=== PATIENT | male | born 1995 | race Caucasian/White ===

== ENCOUNTER 2016-09-29 12:29 | Emergency (ER) | payer OTHER ==
[2016-09-29 12:37] VITALS: BP 131/84
--- NOTE | 2016-09-29 13:12 | UC ---
Ivanna Murphy Salem, scribed for Joyce Lara MD on 09/29/16 at 1248 . Lower Extremity/Ankle HPI - HPI Summary HPI Summary: Patient is a 21 y/o M who presents to the with tingling / sensory changes in bilateral posterior lower extremities since 4 days ago. He states that tingling began in the soles of his feet on Sunday. and has been spreading upwards into his perineum. Pt states initial felt sensation like "deep asleep" but has progressed since and now with a constant dull pain in same lower extremity distribution and intermittent sharp stabbing pain (keeping him up at night). PT denies any weakness in LE - no difficulty with ambulation or balance. Pt states at the same time he developed pressure in his rectum and sense of consitpation. PT states was unable to go to the bathroom x 2 days - pt then took stool softners had multiple BM. PT states again today feels constipated. No h/o similar complaints. No incontinence. Pt denies any new shoes, new sports, anything labor intensive, anything inserted into rectum, or any trauma. Denies masses in rectum region. Pt also denies incontinence, muscle weakness, back pain, blood in stool, or pain and sensory changes in . He also denies fever, chills, or rashes. He states that he was in [place] from August 26 to September 08, 2016, but had no sx until 4 days ago. He denies being around anyone who has been sick. no recent vaccination, new medications. no sick contacts. no illness while abroad. Pt is on Truvada for HIV prophylaxis since April. No Fhx of Guillain-Chew or other neurologic processes. . Pt is unable to see PCP until November 05. Patients medication reviewed this visit. - History of Current Complaint Stated Complaint: TINGLING/PAIN, HANDS/FEET Time Seen by Provider: 09/29/16 12:37 Hx Obtained From: Patient Onset/Duration: Gradual Onset, Lasting Days, Still Present Severity Initially: Moderate Severity Currently: Moderate Pain Intensity: 4 Pain Scale Used: 0-10 Numeric Aggravating Factor(s): Nothing Alleviating Factor(s): Nothing Able to Bear Weight: Yes - Allergies/Home Medications Allergies/Adverse Reactions: Allergies Allergy/AdvReac Type Severity Reaction Status Date / Time Shrimp Flavor Allergy Rash Verified 09/29/16 12:32 Home Medications: Home Medications Tenofovir/Emtricitabine(*) [Truvada*] 200 mg PO DAILY 09/29/16 [History Confirmed 09/29/16] PMH/Surg Hx/FS Hx/Imm Hx Previously Healthy: Yes - Surgical History Surgical History: None - Family History Known Family History: Positive: Other - No fhx of back or spine problems. No fhx of guillain-chew. - Social History Occupation: Student - Graduate school. Alcohol Use: Weekly Substance Use Type: None Smoking Status (MU): Never Smoked Tobacco Review of Systems Constitutional: Negative Skin: Negative Eyes: Negative ENT: Negative Respiratory: Negative Cardiovascular: Negative Gastrointestinal: Diarrhea Genitourinary: Other - Constipation and pain in rectum. No masses. No incontinence, back pain, blood in stool, or pain or sensory changes in . Motor: Negative Neurovascular: Negative Musculoskeletal: Negative Neurological: Numbness, Other - Tingling and pain of bilateral lower extremities. All Other Systems Reviewed And Are Negative: Yes Physical Exam Triage Information Reviewed: Yes Appearance: Well-Appearing, No Pain Distress, Well-Nourished Vital Signs: Initial Vital Signs Temp 98 F 09/29/16 12:32 Pulse 86 09/29/16 12:32 Resp 16 09/29/16 12:32 BP 131/84 09/29/16 12:32 Pulse Ox 100 09/29/16 12:32 Vital Signs Reviewed: Yes Eye Exam: Normal Eyes: Negative: Discharge ENT: Positive: Hearing grossly normal Dental Exam: Normal Neck exam: Normal Respiratory Exam: Normal Respiratory: Positive: Lungs clear, Normal breath sounds, No respiratory distress Cardiovascular Exam: Normal Cardiovascular: Positive: RRR, No Murmur, Pulses Normal, Other: - 2+ PT b/l Abdominal Exam: Normal Abdomen Description: Positive: Nontender, No Organomegaly, Soft Bowel Sounds: Positive: Present Musculoskeletal: Positive: Strength Intact, ROM Intact, Other: - full AROM hips , knees, ankles b/l Neurological Exam: Normal Neurological: Positive: Alert, Muscle Tone Normal, Other: - 2+ patellar, achilles reflexes b/l symmetric, no clonus b/l equal sensation throughout LE and UE b/l Psychological Exam: Normal Psychological: Positive: Normal Response To Family Skin Exam: Normal Lower Extremity Course/Dx - Course Course Of Treatment: Pt with progressive sensory changes S1, S2 dermatome with concominant changes to bowel habits. PT is on antiviral prophylacitically. Differential wide but includes cord compression, medication reaction, Guillain- Chew. REcommend pt go to ED for lab work and possible imaging. Pt states understanding and agreement with plan. Will discharge - dad to drive. call to [facility] - Dr. Collado given report - Differential Dx/Diagnosis Provider Diagnoses: progressive paresthesia - Physician Notifications Discussed Patient Care With: Bhavin Collado Time Discussed With Above Provider: 13:04 Instructed by Provider To: Transfer - Will accept pt. Discharge - Discharge Plan Condition: Stable Disposition: [facility] Patient Education Materials: Paresthesia (ED) Referrals: Jayson Celeste MD [Primary Care Provider] - Additional Instructions: The doctor that evaluated you today thinks you should have some additoinal testing and evaluation of the sensory changes in you legs - it is recommended you go to the emergency department for additional testing. They are expecting you. You will likely have laboratory (blood work) and perhaps some imaging to determine if there is a concerning cause for your symptoms. The documentation as recorded by the Ivanna darden Salem accurately reflects the service I personally performed and the decisions made by me, Joyce Lara MD.
== END 2016-09-29 13:13 | disposition short-term general hospital (02) ==
LOC: UCEAST 12:29
DX: R20.2 Paresthesia of skin (principal)
CPT/HCPCS: 99212; G0463

== ENCOUNTER 2016-09-29 13:40 | Emergency (ER) | payer OTHER ==
[2016-09-29 14:38] LABS: Urine Bilirubin Negative (Negative); Urine Glucose Negative (Negative); Urine Nitrite Negative (Negative)
[2016-09-29 14:50] LABS: Hematocrit 46 % (42-52); Hemoglobin 15.8 g/dl (14.0-18.0); Mean Corpuscular HGB Conc 34 g/dl (31-36); Mean Corpuscular Hemoglobin 32 pg (27-31); Mean Corpuscular Volume 93 fL (80-94); Mean Platelet Volume 8 um3 (7.4-10.4); Red Blood Count 4.97 10^6/ul (4.0-5.4); Red Cell Distribution Width 13 % (10.5-15); White Blood Count 5.5 10^3/ul (3.5-10.8)
[2016-09-29 15:05] LABS: ALT 36 U/L (7-52); AST 24 U/L (13-39); Albumin 4.6 g/dL (3.2-5.2); Alkaline Phosphatase 82 U/L (34-104); Anion Gap 7 mmol/L (2-11); BUN/Creatinine Ratio 12.4 (8-20); Blood Urea Nitrogen 11 mg/dL (6-24); C Reactive Protein 1.86 mg/L (< 5.00); CO2 Carbon Dioxide 25 mmol/L (22-32); Calcium 9.5 mg/dL (8.6-10.3); Chloride 106 mmol/L (101-111); EGFR African American 137.5 (>60); EGFR Non-African American 106.9 (>60); Globulin 2.7 g/dL (2-4); Glucose 101 mg/dL (70-100); Potassium 4.3 mmol/L (3.5-5.0); Sodium 138 mmol/L (133-145); Total Protein 7.3 g/dL (6.4-8.9)
[2016-09-29 15:07] LABS: Troponin I 0.01 ng/mL (<0.04)
[2016-09-29 15:33] LABS: Alcohol < 10 mg/dL (<10)
[2016-09-29 15:34] VITALS: BP 127/82
[2016-09-29 15:41] LABS: Erythrocyte Sed Rate 5 mm/Hr (0-14)
[2016-09-29 16:02] LABS: TSH (Thyroid Stimulating Horm) 0.87 mcIU/mL (0.34-5.60)
[2016-09-29 16:16] LABS: Vitamin B12 220 pg/mL (180-914)
--- NOTE | 2016-09-29 16:46 | ED ---
Jose Murphy Rebecca, scribed for Shaila Burns MD on 09/29/16 at 1414 . Lower Extremity - HPI Summary HPI Summary: Pt is a 21 y/o M referred from [facility] who presents to ED c/o bilateral paresthesia and pain in the LE. Paresthesia began on Sunday09/25/16 (4 days ago ) in the soles of the feet and has gradually spread from the soles up through the LE and into the inguinal region. Starting yesterday, he began experiencing a constant, bilateral dull aching pain that goes from the feet up to the knees with occasional sharp, shooting sensations. Currently, the pain is mild, ranked 3/10. Sx aggravated by exposure to the cold and alleviated by nothing. Additionally c/o constipation that began 4 days ago, as well as rectal pain. Denies LE weakness, fever, urinary or bowel incontinence and rectal bleeding. Denies any recent sick contact. PMHx Lyme Disease (summer 2012 - was given Abx in [place], [place] after he presented with a rash and "seizure-like" convulsions ). He followed up locally with Dr. Celeste who did not treat with further Abx. Pt is on Truvada as HIV prophylaxis. Was most recently sexually active with rectal intercourse 2 weeks ago which was free of pain and bleeding. He was in [place] from August 26-September 08 and has been well since his return prior to onset of current sx. Also states he had syphilis that was treated with one injection of antibiotics 5 months ago. Confirms his father is in the ED waiting room for support at this time and that his father is aware of his sexual preference and sexual activity. - History of Current Complaint Chief Complaint: EDExtremityLower Stated Complaint: PAIN IN FEET AND LEGS Hx Obtained From: Patient Onset of Pain: Days - Tingling - 4 days ago; Pain - yesterday Onset/Duration: Still Present Severity Initially: Mild Severity Currently: Mild Pain Intensity: 3 Pain Scale Used: 0-10 Numeric Timing: Constant - Dull, aching, Intermittent - Sharp Location: Is Discrete @ - Bilateral LE from the soles of the feet up to the knees Character Of Pain: Sharp - Intermittent, Dull - Constant, Aching - Constant Associated Signs And Symptoms: Positive: Other - Bilateral LE paresthesia, rectal pain, constipation; Denies urinary or bowel incontinence and rectal bleeding. Negative: Fever, Weakness Aggravating Factor(s): Other - Exposure to the cold Alleviating Factor(s): Nothing Able to Bear Weight: Yes - Allergies/Home Medications Allergies/Adverse Reactions: Allergies Allergy/AdvReac Type Severity Reaction Status Date / Time Shrimp Flavor Allergy Rash Verified 09/29/16 12:32 PMH/Surg Hx/FS Hx/Imm Hx Previously Healthy: No - Lyme ds and syphilis Endocrine/Hematology History: Denies: Hx Diabetes, Hx Thyroid Disease Cardiovascular History: Denies: Hx Hypertension Respiratory History: Denies: Hx Asthma Musculoskeletal History: Reports: Other Musculoskeletal History - PMHx Lyme Disease Infectious Disease History: No Infectious Disease History: Reports: Traveled Outside the [place] in Last 30 Days - [place] Denies: Hx Clostridium Difficile, Hx Hepatitis, Hx Human Immunodeficiency Virus (HIV), Hx of Known/Suspected MRSA, Hx Shingles, Hx Tuberculosis, Hx Known/ Suspected VRE, Hx Known/Suspected VRSA, History Other Infectious Disease - Family History Known Family History: Positive: Other - No fhx of back or spine problems. No fhx of Guillain-Chew. Negative: Cardiac Disease - Social History Occupation: Student - [employer] Alcohol Use: Weekly Alcohol Amount: socially Substance Use Type: Reports: None Smoking Status (MU): Never Smoked Tobacco Review of Systems Negative: Fever Cardiovascular: Negative Respiratory: Negative Positive: Other - Constipation Positive: pain - Rectal pain, other - Denies rectal bleeding. Negative: discharge, incontinence Positive: Arthralgia - Bilateral LE pain from the feet up to the knees Neurological: Other - Bilateral LE paresthesia from the feet to the inguinal region All Other Systems Reviewed And Are Negative: Yes Physical Exam Triage Information Reviewed: Yes Vital Signs On Initial Exam: Initial Vitals Temp Pulse Resp BP Pulse Ox 97.8 F 70 17 133/82 100 09/29/16 13:43 09/29/16 13:43 09/29/16 13:43 09/29/16 13:43 09/29/16 13:43 Vital Signs Reviewed: Yes Appearance: Positive: Well-Nourished, Ill-Appearing, Pain Distress Skin: Positive: Skin Color Reflects Adequate Perfusion, Other - Normal Head/Face: Positive: Normal Head/Face Inspection Eyes: Positive: Conjunctiva Clear ENT: Positive: Normal ENT inspection, Hearing grossly normal. Negative: Muffled /hoarse voice Neck: Positive: Supple, Nontender, No Lymphadenopathy Respiratory/Lung Sounds: Positive: Clear to Auscultation, Breath Sounds Present , Other - No respiratory distress Cardiovascular: Positive: RRR, Pulses are Symmetrical in both Upper and Lower Extremities, Other - Brisk capillary refill. Negative: Murmur, Rub Abdomen Description: Positive: Nontender, Soft. Negative: Distended, Guarding Male Genital Exam: Positive: other - Rectal Exam: There was a tender spot, internally, at the 7 o'clock position. No stool in the rectum. No blood present on occult blood testing. Musculoskeletal: Positive: Strength/ROM Intact. Negative: Edema Left, Edema Right Neurological: Positive: Sensory/Motor Intact, Alert, Oriented to Person Place, Time, Normal Gait, Abnormal Reflex @ - bilat ankle reflexes absent; bilat knee jerk 1+ bilat, Speech Normal, Other - Knee jerk reflex 1+, Ankle jerk reflexes 0 bilaterally. Negative: Reflexes Intact, Babinski Left, Babinski Right, Babinski Bilateral - downgoing, normal, Facial Droop, Focal Deficit @, Slurred Speech Psychiatric: Positive: Normal - [place] Coma Scale Coma Scale Total: 15 Diagnostics - Vital Signs Vital Signs Temp Pulse Resp BP Pulse Ox 09/29/16 13:56 75 98 09/29/16 13:55 143/89 09/29/16 13:51 98.1 F 85 16 143/89 96 09/29/16 13:43 97.8 F 70 17 133/82 100 - Laboratory Lab Results: Lab Results 09/29/16 09/29/16 09/29/16 Range/Units 14:25 14:28 14:28 WBC 5.5 (3.5-10.8) 10^3/ul RBC 4.97 (4.0-5.4) 10^6/ul Hgb 15.8 (14.0-18.0) g/dl Hct 46 (42-52) % MCV 93 (80-94) fL MCH 32 H (27-31) pg MCHC 34 (31-36) g/dl RDW 13 (10.5-15) % Plt Count 181 (150-450) 10^3/ul MPV 8 (7.4-10.4) um3 Neut % (Auto) 61.2 (38-83) % Lymph % (Auto) 30.5 (25-47) % [place] % (Auto) 6.6 (1-9) % Eos % (Auto) 1.2 (0-6) % Baso % (Auto) 0.5 (0-2) % Absolute Neuts (auto) 3.4 (1.5-7.7) 10^3/ul Absolute Lymphs (auto) 1.7 (1.0-4.8) 10^3/ul Absolute Monos (auto) 0.4 (0-0.8) 10^3/ul Absolute Eos (auto) 0.1 (0-0.6) 10^3/ul Absolute Basos (auto) 0 (0-0.2) 10^3/ul Absolute Nucleated RBC 0 10^3/ul Nucleated RBC % 0.1 ESR 5 (0-14) mm/Hr INR (Anticoag Therapy) 0.91 (0.89-1.11) APTT 32.2 (26.0-36.3) seconds Sodium (133-145) mmol/L Potassium (3.5-5.0) mmol/L Chloride (101-111) mmol/L Carbon Dioxide (22-32) mmol/L Anion Gap (2-11) mmol/L BUN (6-24) mg/dL Creatinine (0.67-1.17) mg/dL Est GFR ( Amer) (>60) Est GFR (Non-Af Amer) (>60) BUN/Creatinine Ratio (8-20) Glucose (70-100) mg/dL Lactic Acid (0.5-2.0) mmol/L Calcium (8.6-10.3) mg/dL Total Bilirubin (0.2-1.0) mg/dL AST (13-39) U/L ALT (7-52) U/L Alkaline Phosphatase (34-104) U/L Troponin I (<0.04) ng/mL C-Reactive Protein (< 5.00) mg/L Total Protein (6.4-8.9) g/dL Albumin (3.2-5.2) g/dL Globulin (2-4) g/dL Albumin/Globulin Ratio (1-3) Vitamin B12 (180-914) pg/mL TSH (0.34-5.60) mcIU/mL Urine Color Straw Urine Appearance Clear Urine pH 6.0 (5-9) Ur Specific [place] 1.005 L (1.010-1.030) Urine Protein Negative (Negative) Urine Ketones Negative (Negative) Urine Blood Negative (Negative) Urine Nitrate Negative (Negative) Urine Bilirubin Negative (Negative) Urine Urobilinogen Negative (Negative) Ur Leukocyte Esterase Negative (Negative) Urine Glucose Negative (Negative) Serum Alcohol (<10) mg/dL 09/29/16 09/29/16 Range/Units 14:28 14:28 WBC (3.5-10.8) 10^3/ul RBC (4.0-5.4) 10^6/ul Hgb (14.0-18.0) g/dl Hct (42-52) % MCV (80-94) fL MCH (27-31) pg MCHC (31-36) g/dl RDW (10.5-15) % Plt Count (150-450) 10^3/ul MPV (7.4-10.4) um3 Neut % (Auto) (38-83) % Lymph % (Auto) (25-47) % [place] % (Auto) (1-9) % Eos % (Auto) (0-6) % Baso % (Auto) (0-2) % Absolute Neuts (auto) (1.5-7.7) 10^3/ul Absolute Lymphs (auto) (1.0-4.8) 10^3/ul Absolute Monos (auto) (0-0.8) 10^3/ul Absolute Eos (auto) (0-0.6) 10^3/ul Absolute Basos (auto) (0-0.2) 10^3/ul Absolute Nucleated RBC 10^3/ul Nucleated RBC % ESR (0-14) mm/Hr INR (Anticoag Therapy) (0.89-1.11) APTT (26.0-36.3) seconds Sodium 138 (133-145) mmol/L Potassium 4.3 (3.5-5.0) mmol/L Chloride 106 (101-111) mmol/L Carbon Dioxide 25 (22-32) mmol/L Anion Gap 7 (2-11) mmol/L BUN 11 (6-24) mg/dL Creatinine 0.89 (0.67-1.17) mg/dL Est GFR ( Amer) 137.5 (>60) Est GFR (Non-Af Amer) 106.9 (>60) BUN/Creatinine Ratio 12.4 (8-20) Glucose 101 H (70-100) mg/dL Lactic Acid 1.1 (0.5-2.0) mmol/L Calcium 9.5 (8.6-10.3) mg/dL Total Bilirubin 0.90 (0.2-1.0) mg/dL AST 24 (13-39) U/L ALT 36 (7-52) U/L Alkaline Phosphatase 82 (34-104) U/L Troponin I 0.01 (<0.04) ng/mL C-Reactive Protein 1.86 (< 5.00) mg/L Total Protein 7.3 (6.4-8.9) g/dL Albumin 4.6 (3.2-5.2) g/dL Globulin 2.7 (2-4) g/dL Albumin/Globulin Ratio 1.7 (1-3) Vitamin B12 220 (180-914) pg/mL TSH 0.87 (0.34-5.60) mcIU/mL Urine Color Urine Appearance Urine pH (5-9) Ur Specific [place] (1.010-1.030) Urine Protein (Negative) Urine Ketones (Negative) Urine Blood (Negative) Urine Nitrate (Negative) Urine Bilirubin (Negative) Urine Urobilinogen (Negative) Ur Leukocyte Esterase (Negative) Urine Glucose (Negative) Serum Alcohol < 10 (<10) mg/dL Result Diagrams: 09/29/16 14:28 09/29/16 14:28 Lab Statement: Any lab studies that have been ordered have been reviewed, and results considered in the medical decision making process. - EKG 1529 Cardiac Rate: NL - 72 bpm EKG Rhythm: Sinus Rhythm EKG Interpretation: Nl AV/IV CT, no QTC, nl axis, no acute changes Re-Evaluation - Re-Evaluation First Eval Re-Evaluation Time: 14:36 Change: Unchanged Comment: Discussed consultation with Dr. 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 Discussed who has been providing his Truvada and a possible alternative prophylaxis treatment. Updated on how long his blood work results should take to return. Performed rectal exam and further discussed symptoms. Note discussion with Dr. Smith occured before hx of Lyme ds and syphilis were known. Second Eval Re-Evaluation Time: 16:04 Change: Unchanged Comment: Discussed the appointment made with Dr. Cox and the consult with Dr. Denney. Advised the patient not to stop the Truvada yet, until further discussion with Dr. Cox. Told the patient that there are HIV, Syphilis, Thyroid, Vitamin B12 and Lyme labs that were sent. Pt reports that he has previously had Syphilis about 5 months ago which was treated. Told the patient that ultimately the lesion found on the rectal exam needs to be evaluated and that if he has issues scheduling an appointment with Dr. Denney to call the [facility] office, per Dr. Denney. Lower Extremity Course/Dx - Course Assessment/Plan: Pt is a 21 y/o M referred from [facility] who presents to ED c/o bilateral tingling and mild pain in the LE. Tingling began 4 days ago in the soles of the feet and has gradually spread from the soles up through the LE and into the inguinal region. Starting yesterday, he began experiencing a constant, bilateral, dull aching pain that goes from the feet up to the knees with occasional sharp, shooting sensations. Sx aggravated by exposure to the cold and alleviated by nothing. Additionally c/o constipation that began 4 days ago, as well as rectal pain. Denies fever, urinary or bowel incontinence and rectal bleeding. Pt is on Truvada as HIV prophylaxis. Was in [place] from August 26-September 08 and has been well since his return prior to onset of current sx. Discussed care of pt with Dr. Smith who reports his sx sound like peripheral neuropathy which is a side effect of Truvada and does not sound like cauda equina. Reports imaging is not needed at this time. Discussed care of pt with Dr. Denney who confirms he will see the pt in his office as an outpatient. Discussed care of pt with Dr. Conner Cox who will see the pt in his office on 10/02 at 1400. Patient will be D/C to home with Dx of paresthesia, rectal pain and high blood pressure without a Hx of HTN. Pt medications reviewed this visit. High blood pressure noted. Allergies noted. - Diagnoses Differential Diagnosis/HQI/PQRI: Positive: Infection, Other - peripheral neuropathy, HIV, syphilis, Lyme disease Provider Diagnoses: Paresthesia, Blood pressure elevated without history of HTN, Rectal pain - Physician Notifications Discussed Care Of Patient With: Pippa Smith Time Discussed With Above Provider: 14:26 Instructed by Provider To: Other - She says that is sounds as though it is peripheral neuropathy, not cauda equina or Guillain [place]. She thinks it is a side effect of the Truvada and she does not recommend imaging at this time. ( Note pt's hx of Lyme ds and syphilis was relayed to us after discussion with Dr. Smith.) Discussed care of patient with Dr. Don Denney at 1506 who will see the patient in his office and advised that the pt call for an outpatient follow up appointment. Discussed care of patient with Dr. Conner Cox at 1509 who will call the patient and see him on Sunday (10/02). Discharge - Discharge Plan Condition: Stable Disposition: HOME Patient Education Materials: Paresthesia (ED) Referrals: Conner Cox MD [Medical Doctor] - 10/02/16 (Dr. Cox's office see you on Sunday, 10/02 at 2:00 p.m.) Don Denney MD [Medical Doctor] - (Call Dr. Denney office Sunday morning before your 2:[address] Cox. ) Additional Instructions: Continue your Truvada at this point. There are still some pending blood tests such as the Lyme serology, the syphilis test, the HIV test, that Dr. Cox can address with you. We will contact you if you need further treatment based on those results. If Dr. Олег bowser is unable to see you before you leave for [facility], Dr. Denney suggested that you try the [facility] located in [place] at [phone]. RETURN TO EMERGENCY DEPARTMENT FOR ANY NEW OR WORSENING SYMPTOMS The documentation as recorded by the Jose darden Rebecca accurately reflects the service I personally performed and the decisions made by me, Shaila Burns MD.
[2016-10-01 12:25] LABS: Syphilis Index > 45.0 Index
== END 2016-09-29 16:51 | disposition home or self-care (01) ==
LOC: ED 13:40
DX: K62.89 Other specified diseases of anus and rectum (principal); R03.0 Elevated blood-pressure reading, without diagnosis of hypertension; K59.00 Constipation, unspecified; R20.9 Unspecified disturbances of skin sensation
CPT/HCPCS: 36415; 80053; 80320; 81003; 82272; 82607; 83605; 84443; 84484; 85025; 85610; 85652; 85730; 86140; 86592; 86618; 86703; 86780; 87040; 93005; 99282; G0480

== ENCOUNTER 2016-10-18 17:46 | Emergency (ER) | payer OTHER ==
[2016-10-18 20:47] VITALS: BP 135/94
--- NOTE | 2016-10-18 20:50 | ED ---
Head Injury - HPI Summary HPI Summary: Patient presents 2 days s/p head injury. He states he hit the left temporal area of his head 2 days ago upon standing up and hitting it on the refrigerator. He denies other injuries. He states he has been confused, nauseous, feeling of "drunk," BARRETO, decreased appetite, unable to concentrate on tasks since this morning. S/p accident he immediately had LOC and was confused following the incident. He denies blood thinners, does not take medication, otherwise healthy and UTD on immunizations. Pain is 1/10 and does not radiate. Denies visual disturbances or photophobia. Denies posterior cervical spine tenderness. A & O x 3. Speech normal. Denies neurological symptoms. - History Of Current Complaint Chief Complaint: EDHeadInjury Stated Complaint: HEAD INJURY/2 DAYS AGO Time Seen by Provider: 10/18/16 19:59 Hx Obtained From: Patient Mechanism Of Injury: Direct Blow Onset/Duration: Started Days Ago Onset of Pain: Immediate Severity Currently: Moderate Severity Initially: Moderate Pain Intensity: 1 Pain Scale Used: 0-10 Numeric Location of Head Injury: Temporal Location: Discrete At: - left temporal area Character: Throbbing, Pressure Aggravating Factor(s): Movement Alleviating Factor(s): Rest, Ice Associated Signs And Symptoms: LOC (Time In Secs./Mins/Hrs) - unknown time frame , Confusion, Nausea, Headache, Other: - decreased appetite - Risk Factors SDH Risk Factor: Male - Allergies/Home Medications Allergies/Adverse Reactions: Allergies Allergy/AdvReac Type Severity Reaction Status Date / Time Shrimp Flavor Allergy Rash Verified 10/18/16 20:50 PMH/Surg Hx/FS Hx/Imm Hx Previously Healthy: Yes Endocrine/Hematology History: Denies: Hx Diabetes, Hx Thyroid Disease Cardiovascular History: Denies: Hx Hypertension Respiratory History: Denies: Hx Asthma Musculoskeletal History: Reports: Other Musculoskeletal History - PMHx Lyme Disease Infectious Disease History: No Infectious Disease History: Denies: Hx Clostridium Difficile, Hx Hepatitis, Hx Human Immunodeficiency Virus (HIV), Hx of Known/Suspected MRSA, Hx Shingles, Hx Tuberculosis, Hx Known/ Suspected VRE, Hx Known/Suspected VRSA, History Other Infectious Disease, Traveled Outside the [place] in Last 30 Days - Family History Known Family History: Positive: Other - No fhx of back or spine problems. No fhx of Guillain-Chew. Negative: Cardiac Disease - Social History Occupation: Employed Full-time Lives: With Family Alcohol Use: Weekly Alcohol Amount: socially Hx Substance Use: No Substance Use Type: Reports: None Hx Tobacco Use: No Smoking Status (MU): Never Smoked Tobacco Do You Chew or Dip Tobacco: No Review of Systems Constitutional: Negative Eyes: Negative Cardiovascular: Negative Respiratory: Negative Positive: no symptoms reported, see HPI Musculoskeletal: Negative Positive: Headache, Weakness Psychological: Normal All Other Systems Reviewed And Are Negative: Yes Physical Exam Triage Information Reviewed: Yes Vital Signs On Initial Exam: Initial Vitals Temp Pulse Resp BP Pulse Ox 97.5 F 78 20 158/101 100 10/18/16 17:49 10/18/16 17:49 10/18/16 17:49 10/18/16 17:49 10/18/16 17:49 Completion Of Physical Exam Limited Due To: Dementia Appearance: Positive: Well-Appearing, Well-Nourished Skin: Positive: Warm, Skin Color Reflects Adequate Perfusion Head/Face: Positive: Normal Head/Face Inspection Neck: Positive: Supple, Nontender, No Lymphadenopathy Respiratory/Lung Sounds: Positive: Clear to Auscultation, Breath Sounds Present Cardiovascular: Positive: Normal, RRR, Pulses are Symmetrical in both Upper and Lower Extremities Musculoskeletal: Positive: Normal, Strength/ROM Intact Neurological: Positive: Sensory/Motor Intact, Alert, Oriented to Person Place, Time, Speech Normal Psychiatric: Positive: Normal - [place] Coma Scale Best Eye Response: 4 - Spontaneous Best Motor Response: 6 - Obeys Commands Best Verbal Response: 5 - Oriented Diagnostics - Vital Signs Vital Signs Temp Pulse Resp BP Pulse Ox 10/18/16 17:49 97.5 F 78 20 158/101 100 - Laboratory Lab Statement: Any lab studies that have been ordered have been reviewed, and results considered in the medical decision making process. Head Injury Course/Dx Course Of Treatment: According to [place] CT Head Rules, CT WAS obtained d/t: 1.GCS score <15 at 2h post injury. 2.NO Suspected open or depressed skull fracture. 3.NO Any sign of basal skull fracture (raccoon eyes, battles sign, etc.). 4.>1 episode of emesis. 5.NO Have amnesia of 30 minutes or greater prior to trauma. 6.NO Trauma from dangerous mechanism (eg, fall greater than 3 feet, MVA with ejection from vehicle, or pedestrian vs. motor vehicle accident) . Complete neuro exam completed and WNL. Normal head/face inspection with no cephalohematoma. Reflexes intact. EOMI, RIZWANA. No obvious confusion or memory loss per patient and family. MMSE OK. GCS 15. Patient oriented to person, place and date. No obvious deformity or signs of trauma. Patient denies LOC. Visual acuity intact. ROM, strength, reflexes un upper and lower extremity intact, sensation intact. Patient discharged with return precautions and post- concussive symptoms explained to patient. Patient agrees to follow up and return if needed. CT without intracranial pathology. Patient given instructions for brain rest. OK for discharge. - Diagnoses Differential Diagnosis/HQI/PQRI: Concussion With LOC, Concussion Without LOC, Contusion Provider Diagnoses: Concussion Discharge - Discharge Plan Condition: Stable Disposition: HOME Patient Education Materials: Concussion (ED) Referrals: Chaka Wolf MD [Primary Care Provider] - Additional Instructions: Brain rest as much as possible Avoid dark rooms with area of bright lights (TV ) Do not read, study, look at phone or TV often Sleep as much as you can Dark rooms are helpful
--- NOTE | 2016-10-18 21:34 | RAD ---
INDICATION: Traumatic injury to the left temporal lobe 2 days earlier COMPARISON: None. TECHNIQUE: Contiguous axial sections of the brain were obtained from the skull base to the vertex without contrast. FINDINGS: The ventricles, cisterns and sulci are within normal limits. The calderon-white matter differentiation is adequately maintained and there is no sulcal effacement. No significant focal abnormality or mass effect is present. There is no evidence for intracranial hemorrhage. No significant focal osseous abnormality is present. The visualized portion of the paranasal sinuses and mastoid air cells appear clear. IMPRESSION: Normal CT of the brain.
== END 2016-10-18 21:44 | disposition home or self-care (01) ==
LOC: ED 17:46
DX: S06.0X1A Concussion with loss of consciousness of 30 minutes or less, initial encounter (principal); R51 Headache; R53.1 Weakness; W22.8XXA Striking against or struck by other objects, initial encounter; Y93.9 Activity, unspecified; Y92.9 Unspecified place or not applicable
CPT/HCPCS: 70450; 99281